=== PATIENT | female | born 1945 | race Caucasian/White ===

== ENCOUNTER 2016-05-27 08:50 | Outpatient (CLI) | payer MEDICARE, BC ==
[2014-06-26 00:52] VITALS: BP 154/68
== END 2016-05-27 08:52 ==
LOC: LAB 08:50
PROVIDERS: ATTEND Family Medicine
DX: E11.9 Type 2 diabetes mellitus without complications (principal)
CPT/HCPCS: 36415; 83036

== ENCOUNTER 2016-06-06 15:52 | Emergency (ER) | payer MEDICARE, BC ==
[2016-06-06] MEDS ORDERED: ONDANSETRON HCL/PF 4 MG/ 2ML VIAL IVP ONE (16:09)
[2016-06-06] MEDS ORDERED: 0.9 % SODIUM CHLORIDE 1,000 ML IV ONE ×2 (16:09→17:09)
--- NOTE | 2016-06-06 16:24 | ED Physician Documentation ---
General Adult - HISTORIAN Historian: patient - HPI Stated Complaint: dehydration Chief Complaint: General Adult Additional Information: Nausea, retching, decreased po intake for at least 3 days. Nausea when she tries to eat, drink or take meds. Increased intestinal contractile waves. One episode of diarrhea. Burping, belching, + flatus.Only urinated once today, hours ago. HX of venous bleeds from superficial abdominal veins, but three times in the last 10 days. Saw her credit collection specialist a few days ago for the same. - ROS CONST: denies: fever - PAST HX Past History: other (abdominal hernia refractory to surgical repair. IDDM. Mi6dufl Obesity) Surgeries/Procedures: cholecystectomy, other (appy. Herniorraphy sveral times with mesh, skin grafts) Allergies/Adverse Reactions: Allergies Allergy/AdvReac Type Severity Reaction Status Date / Time Penicillins AdvReac Anaphylaxis Verified 06/06/16 16:41 Home Medications: Ambulatory Orders Medication Instructions Recorded Aspirin [Leanne] 162 mg PO HS 06/25/14 - SOCIAL HX Smoking History: non-smoker - FAMILY HX Family History: No - VITAL SIGNS Vital Signs: Vital Signs Temp Pulse Resp BP Pulse Ox 154/68 06/26/14 00:50 - REVIEWED ASSESSMENTS Nursing Assessment Reviewed: Yes Vitals Reviewed: Yes Progress - Progress Progress: Labs good except WBC 15,000. She has been retching. Gluc 189. Urine sp gr. 1.010. BUN 18, Cr 0.6. Slight left shift. Encouraged to return to ER if unable to urinate. She has appts with [facility] next week. ED Results Lab/Radiology - Orders Orders: ED Orders Category Date Time Status Place Saline Lock/IV Now Care 06/06/16 16:09 Active CBC/PLATELET/DIFF Routine Lab 06/06/16 Ordered CMP Routine Lab 06/06/16 Ordered URINALYSIS Routine Lab 06/06/16 Ordered 0.9 % Sodium Chloride [Normal Saline] 1,000 ml Med 06/06/16 16:09 Active IV Q1H Ondansetron HCl/Pf [Zofran 4 mg/2 ml] Med 06/06/16 16:09 Discontinued 4 mg IVP NOW ONE General Adult Physical Exam - PHYSICAL EXAM GENERAL APPEARANCE: no distress EENT: eye inspection normal, ENT inspection normal, pharynx normal NECK: normal inspection, supple RESPIRATORY: no resp distress, breath sounds normal CVS: reg rate & rhythm, heart sounds normal ABDOMEN: soft, normal bowel sounds (very active throughout, normal pitch and timber), other (dilated veins over abdomen) RECTAL: deferred BACK: normal inspection SKIN: warm/dry, normal color NEURO: CN's nml as tested, motor nml, sensation nml, cognition normal Discharge Clincal Impression: Nausea Additional Instructions: Advance your diet slowly. Return to the ER if you are not able to urinate for 8- 10 hours. Home Medications: Ambulatory Orders Aspirin [Leanne] 162 mg PO HS 06/25/14 Condition: Good Disposition: HOME, SELF-CARE Decision to Admit: NO Decision Time: 17:55
[2016-06-06 16:36] LABS: BASOPHILS % 0.2 (0.0-1.5); EOSINOPHILS % 1.2 % (0.0-6.8); MEAN CORPUSCULAR HEMOGLOBIN 26.1 pg (28.0-34.0); MONOCYTES # 0.5 # k/uL (0.0-0.9); MONOCYTES % 3.6 % (0.0-11.0); NEUTROPHILS # 13.1 # k/uL (1.4-7.7)
[2016-06-06 16:56] LABS: eGFR (African) > 60; eGFR (Non-African) > 60
[2016-06-06] MEDS ORDERED: ONDANSETRON HCL 4 MG TAB.RAPDIS PO ONE (17:52)
[2016-06-06 18:20] VITALS: BP 134/82
[2016-06-07 07:10] LABS: OCCULT BLOOD,URINE NEGATIVE (NEGATIVE); UROBILINOGEN URINE 0.2 Eu (0.2-1.0)
== END 2016-06-06 18:02 | disposition home or self-care (01) ==
LOC: ED 15:52
DX: R11.0 Nausea (principal)
CPT/HCPCS: 80053; 85025; A9270; J7030; 81002; S1016

== ENCOUNTER 2016-08-31 09:04 | Outpatient (CLI) | payer MEDICARE, BC ==
[2016-08-31 09:40] LABS: eGFR (African) > 60; eGFR (Non-African) > 60
== END 2016-08-31 09:05 ==
LOC: LAB 09:04
PROVIDERS: ATTEND Family Medicine
DX: E11.9 Type 2 diabetes mellitus without complications (principal)
CPT/HCPCS: 36415; 80053; 80061; 83036

== ENCOUNTER 2016-12-03 09:29 | Outpatient (CLI) | payer MEDICARE, BC | END 2016-12-03 09:30 | LOC: LAB 09:29 | PROVIDERS: ATTEND Family Medicine | DX: E11.9 Type 2 diabetes mellitus without complications (principal); Z79.4 Long term (current) use of insulin | CPT/HCPCS: 36415; 82043; 83036 ==

== ENCOUNTER 2017-03-14 08:54 | Inpatient (IN) | payer MEDICARE, BC ==
[2017-03-14] MEDS ORDERED: LEVOFLOXACIN 250 MG TABLET PO ONE (10:31)
[2017-03-14] MEDS: ENOXAPARIN SODIUM 40 MG/0.4 ML DISP.SYRIN SQ SCH (10:34)
[2017-03-14] MEDS: LEVOFLOXACIN 500 MG TABLET PO SCH (10:34)
[2017-03-14 10:55] VITALS: BMI 46.0
[2017-03-14] MEDS ORDERED: CYANOCOBALAMIN (VITAMIN B12) 1,000 MCG TABLET PO ONE (11:31)
[2017-03-14] MEDS ORDERED: ESCITALOPRAM OXALATE 10 MG TABLET PO ONE (11:31)
[2017-03-14] MEDS ORDERED: ASCORBIC ACID 500 MG PO SCH (12:00)
[2017-03-14] MEDS: MECOBALAMIN 500 MCG SL SCH (12:04)
[2017-03-14] MEDS: POTASSIUM CHLORIDE 10 MEQ TABLET.ER PO SCH ×2 (12:04→18:33)
[2017-03-14] MEDS: traMADol HCL 50 MG TABLET PO PRN (12:15)
[2017-03-14] MEDS: VITAMIN E 400 UNIT PO SCH (12:17)
[2017-03-14] MEDS: ERGOCALCIFEROL 400 UNIT PO SCH (12:17)
[2017-03-14] MEDS ORDERED: ACETAMINOPHEN 500 MG TABLET ONE (15:41)
[2017-03-14] MEDS: NYSTATIN CREAM 100,000 UNIT/GM 15GM TP SCH ×2 (17:12→18:33)
[2017-03-14] MEDS: ESCITALOPRAM OXALATE 10 MG TABLET PO SCH (17:14)
[2017-03-14] MEDS: ASPIRIN 81 MG CHEW TAB PO SCH (19:46)
[2017-03-14] MEDS: SIMVASTATIN 40 MG TABLET PO SCH (19:46)
[2017-03-14] MEDS: ACETAMINOPHEN 325 MG TABLET PO PRN (19:49)
[2017-03-14] MEDS: INSULIN DETEMIR 100 UNIT/ML 3ML PEN.INJCTR SQ SCH (20:01)
[2017-03-14] MEDS ORDERED: ASPIRIN 81 MG CHEW TAB PO SCH (21:00)
[2017-03-15] MEDS ORDERED: LEVOTHYROXINE SODIUM 25 MCG TABLET ONE (05:32)
[2017-03-15] MEDS ORDERED: LEVOTHYROXINE SODIUM 100 MCG TABLET PO ONE (05:32)
[2017-03-15] MEDS: LEVOTHYROXINE SODIUM 75 MCG TABLET PO SCH (06:25)
[2017-03-15] MEDS ORDERED: [UNRECOGNIZED DRUG - OTHER] PO SCH (09:00)
[2017-03-15] MEDS: ENOXAPARIN SODIUM 40 MG/0.4 ML DISP.SYRIN SQ SCH (09:14)
[2017-03-15] MEDS: LEVOFLOXACIN 500 MG TABLET PO SCH (09:14)
[2017-03-15] MEDS: ACETAMINOPHEN 325 MG TABLET PO PRN (09:18)
[2017-03-15] MEDS: NYSTATIN CREAM 100,000 UNIT/GM 15GM TP SCH ×2 (10:12→13:51)
[2017-03-15] MEDS ORDERED: CYANOCOBALAMIN (VITAMIN B12) 1,000 MCG TABLET PO ONE (12:03)
[2017-03-15] MEDS: POTASSIUM CHLORIDE 10 MEQ TABLET.ER PO SCH ×2 (12:05→17:10)
[2017-03-15] MEDS: ERGOCALCIFEROL 400 UNIT PO SCH (12:06)
[2017-03-15] MEDS: MECOBALAMIN 500 MCG SL SCH (12:07)
[2017-03-15] MEDS: ASCORBIC ACID (VITAMIN C) 500 MG TABLET PO SCH (12:07)
[2017-03-15] MEDS: VITAMIN E 400 UNIT PO SCH (12:08)
[2017-03-15 15:30] LABS: BASOPHILS % 0.5 (0.0-1.5); EOSINOPHILS % 1.7 % (0.0-6.8); MEAN CORPUSCULAR HEMOGLOBIN 26.3 pg (28.0-34.0); NEUTROPHILS # 8.6 # k/uL (1.4-7.7)
[2017-03-15] MEDS: ESCITALOPRAM OXALATE 10 MG TABLET PO SCH (17:10)
[2017-03-15] MEDS: traMADol HCL 50 MG TABLET PO PRN (19:46)
[2017-03-15] MEDS: SIMVASTATIN 40 MG TABLET PO SCH (19:47)
[2017-03-15] MEDS: ASPIRIN 81 MG CHEW TAB PO SCH (19:47)
[2017-03-15] MEDS: INSULIN DETEMIR 100 UNIT/ML 3ML PEN.INJCTR SQ SCH (20:33)
[2017-03-15] MEDS: NYSTATIN POWDER BOTTLE TP SCH (21:05)
[2017-03-16] MEDS ORDERED: LEVOTHYROXINE SODIUM 25 MCG TABLET ONE (06:00)
[2017-03-16] MEDS ORDERED: LEVOTHYROXINE SODIUM 100 MCG TABLET PO ONE (06:01)
[2017-03-16] MEDS: LEVOTHYROXINE SODIUM 75 MCG TABLET PO SCH (06:25)
[2017-03-16] MEDS: HYDROCHLOROTHIAZIDE 25 MG TABLET PO SCH (08:47)
[2017-03-16] MEDS: LEVOFLOXACIN 500 MG TABLET PO SCH (08:48)
[2017-03-16] MEDS: NYSTATIN POWDER BOTTLE TP SCH ×2 (08:48→20:00)
[2017-03-16] MEDS: ACETAMINOPHEN 325 MG TABLET PO PRN ×2 (08:50→17:51)
[2017-03-16] MEDS: ENOXAPARIN SODIUM 40 MG/0.4 ML DISP.SYRIN SQ SCH (12:13)
[2017-03-16] MEDS: POTASSIUM CHLORIDE 10 MEQ TABLET.ER PO SCH ×2 (12:13→17:20)
[2017-03-16] MEDS: ASCORBIC ACID (VITAMIN C) 500 MG TABLET PO SCH (12:14)
[2017-03-16] MEDS: ESCITALOPRAM OXALATE 10 MG TABLET PO SCH (17:19)
[2017-03-16] MEDS: traMADol HCL 50 MG TABLET PO PRN (18:58)
[2017-03-16] MEDS: ASPIRIN 81 MG CHEW TAB PO SCH (19:54)
[2017-03-16] MEDS: SIMVASTATIN 40 MG TABLET PO SCH (19:55)
[2017-03-16] MEDS: INSULIN DETEMIR 100 UNIT/ML 3ML PEN.INJCTR SQ SCH (19:56)
[2017-03-17] MEDS ORDERED: LEVOTHYROXINE SODIUM 25 MCG TABLET ONE (04:12)
[2017-03-17] MEDS: LEVOTHYROXINE SODIUM 75 MCG TABLET PO SCH (05:28)
[2017-03-17] MEDS: HYDROCHLOROTHIAZIDE 25 MG TABLET PO SCH (08:33)
[2017-03-17] MEDS: LEVOFLOXACIN 500 MG TABLET PO SCH (08:34)
[2017-03-17] MEDS: ENOXAPARIN SODIUM 40 MG/0.4 ML DISP.SYRIN SQ SCH (08:35)
[2017-03-17] MEDS: ACETAMINOPHEN 325 MG TABLET PO PRN ×2 (08:37→21:56)
[2017-03-17] MEDS: NYSTATIN POWDER BOTTLE TP SCH ×2 (08:38→20:37)
[2017-03-17] MEDS: ASCORBIC ACID (VITAMIN C) 500 MG TABLET PO SCH (11:34)
[2017-03-17] MEDS: POTASSIUM CHLORIDE 10 MEQ TABLET.ER PO SCH ×2 (11:34→17:54)
[2017-03-17] MEDS: ESCITALOPRAM OXALATE 10 MG TABLET PO SCH (16:25)
[2017-03-17] MEDS: traMADol HCL 50 MG TABLET PO PRN (16:26)
[2017-03-17] MEDS: ASPIRIN 81 MG CHEW TAB PO SCH (20:26)
[2017-03-17] MEDS: SIMVASTATIN 40 MG TABLET PO SCH (20:27)
[2017-03-17] MEDS: INSULIN DETEMIR 100 UNIT/ML 3ML PEN.INJCTR SQ SCH (20:29)
[2017-03-18] MEDS ORDERED: LEVOTHYROXINE SODIUM 25 MCG TABLET ONE (00:36)
[2017-03-18] MEDS ORDERED: LEVOTHYROXINE SODIUM 100 MCG TABLET PO ONE (00:37)
[2017-03-18] MEDS: LEVOTHYROXINE SODIUM 75 MCG TABLET PO SCH (06:06)
[2017-03-18] MEDS: LEVOFLOXACIN 500 MG TABLET PO SCH (09:03)
[2017-03-18] MEDS: HYDROCHLOROTHIAZIDE 25 MG TABLET PO SCH (09:03)
[2017-03-18] MEDS: ACETAMINOPHEN 325 MG TABLET PO PRN (09:05)
[2017-03-18] MEDS: NYSTATIN POWDER BOTTLE TP SCH ×2 (09:05→20:10)
[2017-03-18] MEDS: ENOXAPARIN SODIUM 40 MG/0.4 ML DISP.SYRIN SQ SCH (09:07)
[2017-03-18] MEDS: POTASSIUM CHLORIDE 10 MEQ TABLET.ER PO SCH ×2 (12:50→17:25)
[2017-03-18] MEDS: ASCORBIC ACID (VITAMIN C) 500 MG TABLET PO SCH (12:50)
[2017-03-18] MEDS: traMADol HCL 50 MG TABLET PO PRN ×2 (15:04→23:06)
[2017-03-18] MEDS: ESCITALOPRAM OXALATE 10 MG TABLET PO SCH (16:38)
[2017-03-18] MEDS: SIMVASTATIN 40 MG TABLET PO SCH (20:07)
[2017-03-18] MEDS: ASPIRIN 81 MG CHEW TAB PO SCH (20:07)
[2017-03-18] MEDS: INSULIN DETEMIR 100 UNIT/ML 3ML PEN.INJCTR SQ SCH (20:08)
[2017-03-19] MEDS ORDERED: LEVOTHYROXINE SODIUM 25 MCG TABLET ONE (00:20)
[2017-03-19] MEDS ORDERED: LEVOTHYROXINE SODIUM 100 MCG TABLET PO ONE (00:22)
[2017-03-19] MEDS: LEVOTHYROXINE SODIUM 75 MCG TABLET PO SCH (06:05)
[2017-03-19] MEDS: HYDROCHLOROTHIAZIDE 25 MG TABLET PO SCH (09:32)
[2017-03-19] MEDS: LEVOFLOXACIN 500 MG TABLET PO SCH (09:33)
[2017-03-19] MEDS: NYSTATIN POWDER BOTTLE TP SCH ×2 (09:34→19:52)
[2017-03-19] MEDS: ENOXAPARIN SODIUM 40 MG/0.4 ML DISP.SYRIN SQ SCH (09:34)
[2017-03-19] MEDS: POTASSIUM CHLORIDE 10 MEQ TABLET.ER PO SCH ×2 (12:42→18:35)
[2017-03-19] MEDS: ASCORBIC ACID (VITAMIN C) 500 MG TABLET PO SCH (12:42)
[2017-03-19] MEDS: ACETAMINOPHEN 325 MG TABLET PO PRN (12:43)
[2017-03-19] MEDS: ESCITALOPRAM OXALATE 10 MG TABLET PO SCH (16:44)
[2017-03-19] MEDS: ASPIRIN 81 MG CHEW TAB PO SCH (19:51)
[2017-03-19] MEDS: SIMVASTATIN 40 MG TABLET PO SCH (19:52)
[2017-03-19] MEDS: traMADol HCL 50 MG TABLET PO PRN (19:53)
[2017-03-19] MEDS: INSULIN DETEMIR 100 UNIT/ML 3ML PEN.INJCTR SQ SCH (20:16)
[2017-03-20] MEDS ORDERED: LEVOTHYROXINE SODIUM 25 MCG TABLET ONE (05:34)
[2017-03-20] MEDS ORDERED: LEVOTHYROXINE SODIUM 100 MCG TABLET PO ONE (05:35)
[2017-03-20] MEDS: LEVOTHYROXINE SODIUM 75 MCG TABLET PO SCH (06:05)
[2017-03-20] MEDS: HYDROCHLOROTHIAZIDE 25 MG TABLET PO SCH (09:12)
[2017-03-20] MEDS: NYSTATIN POWDER BOTTLE TP SCH ×2 (09:14→19:33)
[2017-03-20] MEDS: ENOXAPARIN SODIUM 40 MG/0.4 ML DISP.SYRIN SQ SCH (09:14)
[2017-03-20] MEDS: ASCORBIC ACID (VITAMIN C) 500 MG TABLET PO SCH (12:21)
[2017-03-20] MEDS: ACETAMINOPHEN 325 MG TABLET PO PRN ×2 (12:21→19:35)
[2017-03-20] MEDS: POTASSIUM CHLORIDE 10 MEQ TABLET.ER PO SCH ×2 (12:24→18:25)
[2017-03-20] MEDS: ESCITALOPRAM OXALATE 10 MG TABLET PO SCH (16:55)
[2017-03-20] MEDS: ASPIRIN 81 MG CHEW TAB PO SCH (19:32)
[2017-03-20] MEDS: SIMVASTATIN 40 MG TABLET PO SCH (19:32)
[2017-03-20] MEDS: traMADol HCL 50 MG TABLET PO PRN (19:34)
[2017-03-20] MEDS: INSULIN DETEMIR 100 UNIT/ML 3ML PEN.INJCTR SQ SCH (19:38)
[2017-03-21] MEDS: traMADol HCL 50 MG TABLET PO PRN ×3 (06:05→20:48)
[2017-03-21] MEDS: LEVOTHYROXINE SODIUM 75 MCG TABLET PO SCH (06:05)
[2017-03-21] MEDS: ACETAMINOPHEN 325 MG TABLET PO PRN ×3 (06:06→20:48)
[2017-03-21] MEDS: ENOXAPARIN SODIUM 40 MG/0.4 ML DISP.SYRIN SQ SCH (09:06)
[2017-03-21] MEDS: NYSTATIN POWDER BOTTLE TP SCH ×2 (09:09→20:43)
[2017-03-21] MEDS: HYDROCHLOROTHIAZIDE 25 MG TABLET PO SCH (09:09)
[2017-03-21] MEDS: POTASSIUM CHLORIDE 10 MEQ TABLET.ER PO SCH ×2 (11:39→17:04)
[2017-03-21] MEDS: ASCORBIC ACID (VITAMIN C) 500 MG TABLET PO SCH (11:39)
[2017-03-21] MEDS: ESCITALOPRAM OXALATE 10 MG TABLET PO SCH (17:06)
[2017-03-21] MEDS: ASPIRIN 81 MG CHEW TAB PO SCH (20:43)
[2017-03-21] MEDS: SIMVASTATIN 40 MG TABLET PO SCH (20:44)
[2017-03-21] MEDS: INSULIN DETEMIR 100 UNIT/ML 3ML PEN.INJCTR SQ SCH (20:45)
[2017-03-22] MEDS: LEVOTHYROXINE SODIUM 75 MCG TABLET PO SCH (05:56)
[2017-03-22] MEDS: traMADol HCL 50 MG TABLET PO PRN ×3 (05:58→22:08)
[2017-03-22] MEDS: ACETAMINOPHEN 325 MG TABLET PO PRN ×3 (05:59→22:06)
[2017-03-22] MEDS: NYSTATIN POWDER BOTTLE TP SCH ×2 (08:48→19:50)
[2017-03-22] MEDS: HYDROCHLOROTHIAZIDE 25 MG TABLET PO SCH (08:48)
[2017-03-22] MEDS: ENOXAPARIN SODIUM 40 MG/0.4 ML DISP.SYRIN SQ SCH (08:51)
[2017-03-22] MEDS: POTASSIUM CHLORIDE 10 MEQ TABLET.ER PO SCH ×2 (11:31→17:21)
[2017-03-22] MEDS: ASCORBIC ACID (VITAMIN C) 500 MG TABLET PO SCH (11:31)
--- NOTE | 2017-03-22 14:09 | Inpatient Progress Note ---
Subjective - Required Recertification Statement I anticipate X number of days because-include discharge plan: 2 - Review of Systems Subjective: Patient is doing better. Feels stronger than when she came in. The redness of the incisional hernia is improved but has some mild skin breakdown now. Objective - Exam Vitals and I&O: Vital Signs Temp 96.7 F L 03/22/17 09:00 Pulse 72 03/22/17 09:00 Resp 18 03/22/17 09:00 BP 133/74 03/22/17 09:00 Pulse Ox 97 03/22/17 09:00 Intake & Output 03/21/17 03/22/17 03/22/17 23:59 11:59 23:59 Intake Total 1140 700 Balance 1140 700 Weight 110.677 kg Intake: Oral 1140 700 Other: Voiding Method Toilet Toilet # Voids 3 1 General: Alert, Oriented to Person, Oriented to Place, Oriented to Time, Cooperative, No acute distress Lungs: Clear to auscultation, Normal air movement, Speaks full Sentences Cardiovascular: Regular rate Abdomen: Other (Very large incisional hernia. Erythema is gone. 1.5 cm area of mild abraided material.) - Results Results: Laboratory Results WBC 11.20 K/ul (4.00-12.00) 03/15/17 15:00 RBC 4.18 M/ul (3.90-5.20) 03/15/17 15:00 Hgb 11.0 g/dL (12.0-16.0) L 03/15/17 15:00 Hct 35.1 % (34.5-46.5) 03/15/17 15:00 MCV 84.0 fl (80.0-100.0) 03/15/17 15:00 MCH 26.3 pg (28.0-34.0) L 03/15/17 15:00 MCHC 31.3 g/dL (30.0-36.0) 03/15/17 15:00 RDW 15.5 % (11.3-14.3) H 03/15/17 15:00 Plt Count 343 K/mm3 (130-400) 03/15/17 15:00 Neut % (Auto) 76.8 % (39.0-79.0) 03/15/17 15:00 Lymph % (Auto) 15.7 % (16.0-50.0) L 03/15/17 15:00 [place] % (Auto) 4.0 % (0.0-11.0) 03/15/17 15:00 Eos % (Auto) 1.7 % (0.0-6.8) 03/15/17 15:00 Baso % (Auto) 0.5 (0.0-1.5) 03/15/17 15:00 Neut # (Auto) 8.6 # k/uL (1.4-7.7) H 03/15/17 15:00 Lymph # (Auto) 1.8 # k/uL (0.6-4.0) 03/15/17 15:00 [place] # (Auto) 0.4 # k/uL (0.0-0.9) 03/15/17 15:00 Eos # (Auto) 0.2 # k/uL (0.0-0.6) 03/15/17 15:00 Baso # (Auto) 0.1 # k/uL (0.0-0.5) 03/15/17 15:00 Reactive Lymphs % 1.2 % (0.0-5.0) 03/15/17 15:00 Reactive Lymphs # 0.1 # k/uL (0.0-0.8) 03/15/17 15:00 Estimat Average Glucose 160 mg/dL 03/14/17 09:20 Hemoglobin A1c 7.2 % (4.0-5.6) H 03/14/17 09:20 Assessment/Plan - Assessment/Plan (1) Weakness Status: Acute Current Visit: No Plan: Planning on discharge. We are working hard to get her back to her house. I believe she needs a semi-electric hospital bed - medically necessary- as her condition requires positioning the body in ways not feasible with an ordinary bed. She is too weak and doesn't have enough strength to pull and move her body as we need her to so we can prevent skin breakdown. Her medical condition also requires the need for frequent repositioning to alleviate the pain she suffers from her osteoarthritis. OT and PT are in agreement. Will work with [employer] to get a hospital bed ordered for discharge.
[2017-03-22] MEDS: ESCITALOPRAM OXALATE 10 MG TABLET PO SCH (17:20)
[2017-03-22] MEDS: ASPIRIN 81 MG CHEW TAB PO SCH (19:45)
[2017-03-22] MEDS: SIMVASTATIN 40 MG TABLET PO SCH (19:46)
[2017-03-22] MEDS: INSULIN DETEMIR 100 UNIT/ML 3ML PEN.INJCTR SQ SCH (19:48)
[2017-03-23] MEDS ORDERED: LEVOTHYROXINE SODIUM 25 MCG TABLET ONE (06:08)
[2017-03-23] MEDS ORDERED: LEVOTHYROXINE SODIUM 100 MCG TABLET PO ONE (06:09)
[2017-03-23] MEDS: LEVOTHYROXINE SODIUM 75 MCG TABLET PO SCH (06:11)
[2017-03-23] MEDS: ACETAMINOPHEN 325 MG TABLET PO PRN ×2 (09:36→17:52)
[2017-03-23] MEDS: traMADol HCL 50 MG TABLET PO PRN ×2 (09:37→17:52)
[2017-03-23] MEDS: ENOXAPARIN SODIUM 40 MG/0.4 ML DISP.SYRIN SQ SCH (09:38)
[2017-03-23] MEDS: NYSTATIN POWDER BOTTLE TP SCH ×2 (09:39→20:30)
[2017-03-23] MEDS: HYDROCHLOROTHIAZIDE 25 MG TABLET PO SCH (09:39)
[2017-03-23] MEDS: ASCORBIC ACID (VITAMIN C) 500 MG TABLET PO SCH (12:35)
[2017-03-23] MEDS: POTASSIUM CHLORIDE 10 MEQ TABLET.ER PO SCH ×2 (12:35→17:49)
[2017-03-23] MEDS: ESCITALOPRAM OXALATE 10 MG TABLET PO SCH (17:49)
[2017-03-23] MEDS: INSULIN DETEMIR 100 UNIT/ML 3ML PEN.INJCTR SQ SCH (19:32)
[2017-03-23] MEDS: SIMVASTATIN 40 MG TABLET PO SCH (19:34)
[2017-03-23] MEDS: ASPIRIN 81 MG CHEW TAB PO SCH (19:34)
[2017-03-24] MEDS: traMADol HCL 50 MG TABLET PO PRN ×2 (00:20→07:35)
[2017-03-24] MEDS: ACETAMINOPHEN 325 MG TABLET PO PRN ×2 (00:21→07:35)
[2017-03-24] MEDS ORDERED: LEVOTHYROXINE SODIUM 25 MCG TABLET ONE (04:41)
[2017-03-24] MEDS ORDERED: LEVOTHYROXINE SODIUM 100 MCG TABLET PO ONE (04:41)
[2017-03-24] MEDS: LEVOTHYROXINE SODIUM 75 MCG TABLET PO SCH (06:30)
--- NOTE | 2017-03-24 08:09 | Discharge Summary ---
Discharge Summary - Discharge Sumary History of Present Illness: Patient had been admitted to Acute for UTI. She was very weak and debilitated so transitioned to SNF care. Condition at Discharge: Stable Home Medications: Ambulatory Orders Medication Instructions Recorded Ascorbic Acid [Vitamin C] 500 mg PO 1200 03/10/17 Aspirin [Leanne] 160 mg PO HS 03/10/17 Atorvastatin Calcium [Lipitor] 20 mg PO HS 03/10/17 B Complex with Vitamin C [[place] 1 each PO DAILY 03/10/17 with C] Ergocalciferol (Vitamin D2) 400 unit PO 1200 03/10/17 [Vitamin D] Escitalopram Oxalate [Lexapro] 20 mg PO 1700 03/10/17 Levothyroxine Sodium [Unithroid] 150 mcg PO 0700 03/10/17 Mecobalamin [B-12] 500 mcg SL 1200 03/10/17 Methyclothiazide [Enduron] 5 mg PO DAILY 03/10/17 Potassium Chloride [Klor-Con 10] 10 meq PO [id number] 03/10/17 Tramadol HCl [Ultram] 50 - 100 mg PO Q6H PRN 03/10/17 Vitamin E 400 unit PO 1200 03/10/17 gliPIZIDE [Glucotrol] 5 [place] [id number] 03/13/17 gliPIZIDE [Glucotrol] 10 mg PO 2100 03/13/17 Insulin Glargine,Hum.rec.anlog 15 unit SQ HS #0 03/22/17 [Lantus Solostar] Consultations this Visit: None Procedures this Visit: None Allergies/Adverse Reactions: Allergies Allergy/AdvReac Type Severity Reaction Status Date / Time Penicillins AdvReac Anaphylaxis Verified 06/06/16 16:41 Discharge Summary: Patient was admitted to SNF care following an Acute admission for UTI, mental status changes, and weakness. Her mental status continued to improve while in SNF. She was able to do better transfers and have increased trunk strength with PT/OT. Her poor skin condition and inability to move herself well are huge risk factors for skin breakdown. She sees wound care every 2 weeks. We are working to get her a hospital bed to aid in moving her more easily. She has terrible arthritis in her shoulders that make moving hard. She is in an electric wheelchair. Levemir was increased to 15 units due to BS 160-200. She was on 75 units at home. Will watch BS at home and increase as needed. Discharged home in fair condition with a good social support in place. Hospital Course: Discharge Dx: Weakness. UTI. osteoarthritis. large incisional hernia. DM. Disposition - home health
[2017-03-24] MEDS: HYDROCHLOROTHIAZIDE 25 MG TABLET PO SCH (08:53)
[2017-03-24] MEDS: NYSTATIN POWDER BOTTLE TP SCH (08:54)
[2017-03-24 09:39] VITALS: BP 149/79
== END 2017-03-24 09:25 | disposition home health service (06) | DRG 948 ==
LOC: SOUTH 08:54
PROVIDERS: ADMIT Family Medicine; ATTEND Family Medicine
DX: R53.1 Weakness (principal); N39.0 Urinary tract infection, site not specified; R41.82 Altered mental status, unspecified; M19.90 Unspecified osteoarthritis, unspecified site; K43.2 Incisional hernia without obstruction or gangrene; E11.9 Type 2 diabetes mellitus without complications
CPT/HCPCS: 36415; 83036; 85025; 97110; 97161; 97530; 97535; J1650

== ENCOUNTER 2017-06-03 09:17 | Outpatient (CLI) | payer MEDICARE, BC | END 2017-06-03 09:20 | LOC: LAB 09:17 | PROVIDERS: ATTEND Family Medicine | DX: J02.9 Acute pharyngitis, unspecified (principal) | CPT/HCPCS: 87070; 87880 ==

== ENCOUNTER 2017-11-14 09:27 | Outpatient (CLI) | payer MEDICARE, BC ==
[2017-11-14 10:08] LABS: APPEARANCE,URINE CLOUDY (CLEAR); COLOR,URINE YELLOW (YELLOW); OCCULT BLOOD,URINE 2+ (NEGATIVE); PH URINE 5.5 (5.0 - 8.0); UROBILINOGEN URINE 0.2 Eu (0.2-1.0)
[2017-11-14 10:18] LABS: eGFR (African) > 60; eGFR (Non-African) > 60
== END 2017-11-14 09:30 ==
LOC: LAB 09:27
PROVIDERS: ATTEND Family Medicine
DX: E11.9 Type 2 diabetes mellitus without complications (principal); R30.0 Dysuria
CPT/HCPCS: 36415; 80053; 80061; 81002; 83036; 87086

== ENCOUNTER 2018-02-13 08:57 | Outpatient (CLI) | payer MEDICARE, BC | END 2018-02-13 09:00 | LOC: LAB 08:57 | PROVIDERS: ATTEND Family Medicine | DX: M54.5 Low back pain (principal); E11.9 Type 2 diabetes mellitus without complications | CPT/HCPCS: 83036; 87086 ==

== ENCOUNTER 2018-05-24 09:28 | Outpatient (CLI) | payer MEDICARE, BC | END 2018-05-24 09:30 | LOC: LAB 09:28 | PROVIDERS: ATTEND Family Medicine | DX: E11.9 Type 2 diabetes mellitus without complications (principal) | CPT/HCPCS: 36415; 83036 ==

== ENCOUNTER 2018-08-21 12:13 | Outpatient (CLI) | payer MEDICARE, BC | END 2018-08-21 12:14 | LOC: LABRHC 12:13 | PROVIDERS: ATTEND Family Medicine | DX: E03.9 Hypothyroidism, unspecified (principal); E11.9 Type 2 diabetes mellitus without complications; Z79.4 Long term (current) use of insulin | CPT/HCPCS: 36415; 83036; 84443 ==

== ENCOUNTER 2018-11-27 13:15 | Outpatient (CLI) | payer MEDICARE, BC ==
[2018-11-27 13:41] LABS: eGFR (Non-African) > 60
[2018-11-27 13:42] LABS: HDL 40 mg/dL (>40)
== END 2018-11-27 13:17 ==
LOC: LABRHC 13:15
PROVIDERS: ATTEND Family Medicine
DX: E11.9 Type 2 diabetes mellitus without complications (principal)
CPT/HCPCS: 80053; 80061; 83036

== ENCOUNTER 2019-02-28 11:04 | Outpatient (CLI) | payer MEDICARE, BC | END 2019-02-28 11:09 | LOC: LABRHC 11:04 | PROVIDERS: ATTEND Family Medicine | DX: E11.9 Type 2 diabetes mellitus without complications (principal) | CPT/HCPCS: 83036 ==